=== PATIENT | male | born 1995 | race Caucasian/White ===

== ENCOUNTER 2020-10-27 16:56 | Emergency (ER) | payer OTHER, SELFPAY ==
--- NOTE | 2020-10-27 17:01 | ED.GENADUL_ITS ---
Discharge Plan Disposition Patient Disposition: HOME Condition: Stable Discharge Details Clinical Impression: Fall, Elbow laceration, Contusion of forearm, right, Contusion of rib on right side Primary Care Provider: Sherry,Local ED Provider: Saira Saldana Home Meds and New Rx's Prescriptions: New cephalexin [Keflex] 500 mg capsule 500 mg PO QID 7 Days Qty: 28 RF: 0 Continued omeprazole 20 mg Capsule,Delayed Release(Dr/Ec) 20 mg PO DAILY RF: 0 Discharge Instructions Instructions: Laceration (ED), Contusion in Adults (ED), Rib Contusion (ED) Additional Instructions: Alternate tylenol and motrin as needed and directed for pain. Take the antibiotics until finished. Keep wound clean and dry. Cover wound with bandage if risk of contamination. Otherwise you can keep the wound open to air if resting at home to allow edges to dry and heal. Return to the emergency department in 10 to 14 days for suture removal. Return to the emergency department at any time if you develop any fever, increased pain, redness or swelling. If you develop any weakness, numbness or difficulty with movement of your right arm, follow-up with orthopedics or return immediately to the emergency department. Referrals: Prasad Varela MD [ [facility] STAFF PHYSICIAN] - Discharge Data Discharge Date/Time-TO BE ENTERED AT DEPARTURE: 10/27/20 20:30 Discharge Physician: Saira Saldana Medical Decision Making 25-year-old male who presents with right elbow laceration after fall 12 feet down through ceiling just prior to arrival. He denies head injury, headache, LOC, vomiting, neck pain, chest pain, difficulty breathing, abdominal pain, back pain. He did admit to some right anterior rib pain which she states is now resolving. His main complaint is right elbow and forearm pain. He is unsure of his tetanus status. He has a deep 10 cm elbow laceration which extends deep through the dermis layer but does not involve muscle or tendon injury. He is neurovascular intact. He has no evidence of head trauma. His midline spine is nontender. He has full range of motion of his upper and lower extremities without deformity or focal deficits. His lungs are clear and his abdomen is soft and nontender. Patient was able to ambulate in the room without any complaint of pain. Boostrix given. Patient referred for right ribs and PA lateral chest x-ray and right elbow x-ray which were negative for acute findings. His right elbow laceration was irrigated extensively, subcutaneous layer closed with 7 Vicryl 4-0 sutures and skin layer closed with 9 nylon 4-0 sutures. Within wound there was multiple 3 mm circular foam foreign bodies consistent with foam packing or ceiling tile. These were removed and the area irrigated extensively and further evaluation was negative for any additional foreign bodies. Due to deep laceration, will cover with antibiotics. Advised to return to the ED in 10 to 14 days for suture removal. Medical Records Medical records reviewed: Yes I reviewed the patient's medical records. Imaging Data Radiologic Study: Radiologist's impression: XR ELBOW RT COMPLETE CLINICAL HISTORY: s/p fall, large laceration, r/o fx. TECHNIQUE: 2D digital imaging was performed. COMPARISON: No exams were available for comparison FINDINGS: There is a deep soft tissue laceration over the dorsal aspect of the elbow- proximal ulna. There is no metallic radiopaque foreign body. This deep laceration extends to the bone surface level. There is no evidence of fracture. There does not appear to be obvious gas within the joint space. No or. There appears to be a possible joint effusion. Radial head unremarkable. IMPRESSION: Deep soft tissue laceration. No fracture evident. Close follow-up recommended. XR RIBS RT W PA LAT CHEST CLINICAL HISTORY: s/p fall, pain R ant sup rib, r/o fx, ptx. TECHNIQUE: 2D digital imaging was performed. COMPARISON: No exams were available for comparison FINDINGS: Note right rib fractures identified on this limited study. No pneumothorax. Lungs are clear. Heart size normal. No pleural effusions. IMPRESSION: No rib fracture seen. No pneumothorax. Lungs are clear. HPI General Mode of arrival: ambulatory . Date/Time Provider Initiated Documentation: 10/27/20 16:58 . Limitations to Documentation: no limitations . Information obtained by: patient . HPI Narrative: Patient is a 25-year-old male who presents for a complaint of right elbow injury after fall through the ceiling approximately down 12 feet at a local store while he was doing groups. Patient states he was walking through the floor of the ceiling when he walked through one of the foam floor ceiling tiles and fell down 12 feet landing on both of his feet. Patient states he was able to walk after this and denies any neck, back or leg pain. He states he hit his right elbow on a sharp edge of the ceiling. He also states he had some brief right-sided rib pain but states this is near resolved. He denies hitting his head, LOC, vomiting. He denies any chest or abdominal pain. He is unsure of his tetanus status. Related Data Home Medications Medication Instructions Recorded Confirmed cephalexin [Keflex] 500 mg PO QID 7 Days #28 cap 10/27/20 omeprazole 20 mg PO DAILY 10/27/20 10/27/20 Previous Rx's Medication Instructions Recorded cephalexin [Keflex] 500 mg PO QID 7 Days #28 cap 10/27/20 Allergies Allergy/AdvReac Type Severity Reaction Status Date / Time No Known Allergies Allergy Unverified 10/27/20 17:24 Review of Systems All systems reviewed & are unremarkable except as noted in HPI and below [facility] Medical History (Updated 10/31/20 @ 09:57 by Saira Saldana DO) No significant past medical history Surgical History (Updated 10/31/20 @ 09:58 by Saira Saldana DO) No significant past surgical history Social History Smoking/Tobacco Use Status: Never Smoking risk assessment performed?: Yes Alcohol Intake: current Alcohol Intake frequency: a few times a week Substance use type: does not use Do you feel safe at home: Yes Do you feel safe in your relationship?: Yes Exam Const General: cooperative and healthy appearing Orientation: alert and awake [facility] Head: normal to inspection Ears: hearing grossly normal bilaterally, external ears normal and TM's normal bilaterally General nose exam: external nose normal Face and sinus: normal facial exam Mouth: oral mucosae normal Teeth and gingiva: dentition normal Throat: posterior oropharynx normal Eyes General: appearance normal, both eyes and all related structures Eyelids: eyelids normal Pupils: PERRL EOM: EOM intact bilaterally Neck Neck: normal visual inspection Lymphatic: no lymphadenopathy noted Chest Chest: normal inspection of the chest, normal palpation of entire chest wall, no crepitus and no tenderness Resp Effort & Inspection: normal respiratory effort and able to speak in complete sentences Auscultation: clear to auscultation bilaterally Cardio Rate: regular rate Rhythm: regular rhythm GI Inspection: normal to inspection and no abdominal wall ecchymosis Palpation: soft, not firm, no guarding, no hepatosplenomegaly, no masses and nontender Auscultation: normal bowel sounds Back/Spine/Pelvis Back: no CVA tenderness Cervical Spine: cervical ROM normal and No cervical spinal tenderness Thoracic/Lumbar Spine: No thoracic spinal tenderness and No lumbar spinal tenderness Pelvis: no pain with anterior-posterior compression, no buttock ecchymosis, no buttock tenderness and no buttock swelling Sacrum: no ecchymosis, no erythema, no swelling and no tenderness Coccyx: no swelling and no tenderness Skin General skin exam: no rashes or lesions noted Neuro General: patient alert, patient awake, gait normal, moves all extremities, no meningeal signs and no focal motor deficits Cranial Nerves: CN's II-XI intact bilaterally Cognition: normal cognition Speech: speech normal Gait: normal gait Motor: muscle tone normal throughout and strength 5/5 throughout Sensory Exam: no sensory deficits noted Extrem Elbow/forearm/wrist images: 1. 10 cm slightly curved laceration noted to posterior elbow overlying olecranon. Extends deep through dermis and subcutaneous tissue. No bony deformity or tendon injury noted. Other: Full range of motion of bilateral upper and lower extremities. There are superficial abrasions or lacerations noted to right forearm proximal and distal to right elbow laceration. There are no orthopedic deformities noted. Bilateral distal pulses intact. Psych Appearance: grossly normal Mental Status: mental status grossly normal Speech and Movement: speech and movement normal Affect: normal affect Thought Process: normal Procedures Laceration Laceration 1: Site: upper extremity (elbow) Side (If applicable): right Size (cm): 10 Description: linear Depth: simple, single layer (extends deep through dermis but does not involve muscle layer, no tendon injury) Local Anesthetic: Lidocaine 1% Amount of anesthesia used (mL): 18 Pre-repair: wound explored, irrigated extensively and deep structures intact Skin layer closed with: nylon Size (cm): 4-0 Number of sutures: 9 Technique: simple, interrupted Subcutaneous layer closed with: vicryl Size: 4-0 Number of sutures: 7 Technique: simple, interrupted
[2020-10-27 17:20] VITALS: BP 151/87; PULSE 87; RESP 16; TEMP 36.4; O2SAT 100
--- NOTE | 2020-10-27 17:45 | DI.RAD_ITS ---
EXAM: XR RIBS RT W PA LAT CHEST CLINICAL HISTORY: s/p fall, pain R ant sup rib, r/o fx, ptx. TECHNIQUE: 2D digital imaging was performed. COMPARISON: No exams were available for comparison FINDINGS: Note right rib fractures identified on this limited study. No pneumothorax. Lungs are clear. Heart size normal. No pleural effusions. IMPRESSION: No rib fracture seen. No pneumothorax. Lungs are clear. DATA REPOSITORY: RADIATION DOSE DELIVERED:
--- NOTE | 2020-10-27 17:45 | DI.RAD_ITS ---
EXAM: XR ELBOW RT COMPLETE CLINICAL HISTORY: s/p fall, large laceration, r/o fx. TECHNIQUE: 2D digital imaging was performed. COMPARISON: No exams were available for comparison FINDINGS: There is a deep soft tissue laceration over the dorsal aspect of the elbow-proximal ulna. There is n o metallic radiopaque foreign body. This deep laceration extends to the bone surface level. There i s no evidence of fracture. There does not appear to be obvious gas within the joint space. No or. There appears to be a possible joint effusion. Radial head unremarkable. IMPRESSION: Deep soft tissue laceration. No fracture evident. Close follow-up recommended. DATA REPOSITORY: RADIATION DOSE DELIVERED:
[2020-10-27] MEDS: Ibuprofen 600 MG TAB PO (17:57)
--- NOTE | 2020-10-27 18:41 | DI.VRAD_ITS ---
PROCEDURE INFORMATION: Exam: XR Right Elbow Exam date and time: 10/27/2020 6:27 PM Age: 25 years old Clinical indication: Other: S/P fall, lg laceration, R/O FX TECHNIQUE: Imaging protocol: XR Right elbow. Views: 3 or more views. COMPARISON: No relevant prior studies available. FINDINGS: Bones/joints: No fractures or dislocations. Soft tissues: Laceration of the soft tissues over the olecranon/distal ulna. No radiopaque foreign bodies identified. IMPRESSION: No fractures or dislocations identified. Soft tissue laceration over the distal ulna. Dictated and Authenticated by: Pablo Acosta MD. Ordering:JUAN MANUEL Chávez MD
--- NOTE | 2020-10-27 18:45 | DI.VRAD_ITS ---
PROCEDURE INFORMATION: Exam: XR Right Ribs Exam date and time: 10/27/2020 6:27 PM Age: 25 years old Clinical indication: Other: S/P fall, pain RT amt sup rib, R/O FX, ptx TECHNIQUE: Imaging protocol: XR Right ribs. Views: 2 views. COMPARISON: No relevant prior studies available. FINDINGS: Bones/joints: No displaced rib fractures identified. Soft tissues: Normal. IMPRESSION: No acute findings. PROCEDURE INFORMATION: Exam: XR Chest, 2 Views Exam date and time: 10/27/2020 6:27 PM Age: 25 years old Clinical indication: Other: S/P fall, pain RT amt sup rib, R/O FX, ptx TECHNIQUE: Imaging protocol: XR of the chest Views: 2 views. COMPARISON: No relevant prior studies available. FINDINGS: Lungs: Unremarkable. No consolidation. Pleural space: Unremarkable. No pleural effusion. No pneumothorax. Heart/Mediastinum: Unremarkable. No cardiomegaly. Bones/joints: Unremarkable. IMPRESSION: No acute findings. Dictated and Authenticated by: Pablo Acosta MD. Ordering:JUAN MANUEL Chávez MD
[2020-10-27] MEDS: Cephalexin 500 MG CAP, 2 CAPS/BTL PO (20:33)
[2020-10-27] MEDS: Cephalexin 500 MG CAP PO (20:33)
[2020-10-27 20:34] VITALS: BP 124/68; PULSE 88; RESP 16; TEMP 36.6; O2SAT 98
== END 2020-10-27 20:30 | disposition home or self-care (01) ==
PROVIDERS: Emergency Provider Physician Assistant
DX: S51.021A Laceration with foreign body of right elbow, initial encounter (principal); S50.11XA Contusion of right forearm, initial encounter; S20.211A Contusion of right front wall of thorax, initial encounter; W13.2XXA Fall from, out of or through roof, initial encounter; Y99.0 Civilian activity done for income or pay
CPT/HCPCS: 12034; 90471; 99282; 71046; 71100; 73080; 99281